=== PATIENT | female | born 1945 | race Hispanic/Latino ===

== ENCOUNTER 2019-01-09 12:04 | Outpatient (CLI) | payer MEDICARE, MEDICAID ==
[2019-01-09 13:35] LABS: #Eosinphils 0.1 thou/uL (0.0-0.7); #Lymphocytes 2.1 thou/uL (1.20-3.40); #Monocytes 0.5 thou/uL (0.11-0.59); #Neutrophils 3.9 thou/uL (1.40-6.50); %Basophils 0.6 % (0.0-1.0); %Lymphocytes 31.5 % (21.0-51.0); %Monocytes 7.6 % (0.0-10.0); %Neutrophils 59.3 % (42.0-75.0); Mean Corpuscular HGB CONC 33.6 g/dL (32.0-36.0); Mean Corpuscular Hemoglobin 31.5 pg (27.0-31.0); Mean Corpuscular Volume 93.7 fL (78.0-98.0); Mean Platelet Volume 8.7 fL (7.4-10.4); Platelet Count 216 thou/uL (130-400); RBC Distribution Width 11.7 % (11.5-14.5); Red Blood Cell (RBC) Count 4.12 mill/uL (4.20-5.40); White Blood Cell (WBC) Count 6.6 thou/uL (4.8-10.8)
[2019-01-09 14:00] LABS: ALT (SGPT) 15 U/L (8-55); AST (SGOT) 20 U/L (5-34); Albumin 4.2 g/dL (3.4-4.8); Alkaline Phosphatase 95 U/L (40-150); Anion Gap 10 mmol/L (10-20); BUN (Urea Nitrogen) 11 mg/dL (9.8-20.1); Bilirubin, Total 0.5 mg/dL (0.2-1.2); Calc. Creatinine Clearance 0 mL/min (70-130); Calcium 9.5 mg/dL (7.8-10.44); Carbon Dioxide 25 mmol/L (23-31); Chloride 109 mmol/L (98-107); Estimated GFR-MDRD 90; Globulin 2.7 g/dL (2.4-3.5); Glucose 103 mg/dL (83-110); Potassium 3.4 mmol/L (3.5-5.1); Protein, Total 6.9 g/dL (6.0-8.3); Sodium 141 mmol/L (136-145)
== END 2019-01-09 12:05 | disposition home or self-care (01) ==
LOC: LABBT 12:04
PROVIDERS: ATTEND Surgery
DX: Z01.818 Encounter for other preprocedural examination (principal); K43.9 Ventral hernia without obstruction or gangrene
CPT/HCPCS: 80053; 85025; 93005; 93010

== ENCOUNTER 2019-01-10 06:04 | Day surgery (SDC) | payer MEDICARE, MEDICAID ==
[2019-01-09 12:18] VITALS: BMI 29.5
[2019-01-10] MEDS ORDERED: Bupivacaine HCl 0.5%/Epinephrine 1:200,000/PF 30 ml Vial ONE (06:34)
[2019-01-10] MEDS ORDERED: ceFAZolin Sodium (SDC) 2 GM/100 ML BAG ONE (07:23)
[2019-01-10] MEDS ORDERED: Fentanyl 100 MCG/2 ML VIAL ONE ×2 (07:29→08:44)
--- NOTE | 2019-01-10 08:38 | OP ---
DATE OF PROCEDURE: 01/10/2019 PREOPERATIVE DIAGNOSIS: Epigastric ventral hernia. PROCEDURE PERFORMED: Open ventral hernia repair with mesh. INDICATIONS: This is a 73-year-old female with a painful bulge in her epigastrium, found to have a hernia. FINDINGS: A 1.5 cm defect, 6.4 cm mesh applied. DESCRIPTION OF PROCEDURE: After informed consent was obtained, the patient was taken to the operating room, given general mask anesthesia, placed in supine position. Abdomen was prepped and draped in usual fashion. Local anesthesia was infiltrated subcutaneously and deep. A midline incision was performed. Subcu divided sharply. The hernia sac was dissected out circumferentially and removed. The contents of the omentum, which was reduced. The defect was 1.5 cm. A 6.4 cm mesh patch was inserted intra-abdominally, pulled up. The leads were sutured to the abdominal wall with interrupted 0 Ethibond suture and then the mesh further secured to the fascia with interrupted 0 Ethibond suture. Hemostasis was achieved with electrocautery. Subcu reapproximated with interrupted 3-0 Vicryl. Skin closed with a running subcuticular 4-0 Rapide. Steri-Strips applied. Sterile bandage applied. The patient tolerated the procedure well, transferred to Recovery in good condition. Sponge and needle count verified correct x2. Job ID: [id number]
[2019-01-10] MEDS ORDERED: HYDROcodone/Acetaminophen 5/325 mg Tablet ONE (10:03)
[2019-01-10] MEDS ORDERED: Morphine 2 MG/ML SYRINGE ONE (10:10)
== END 2019-01-10 13:10 | disposition home or self-care (01) ==
LOC: SDC 06:04
PROVIDERS: ATTEND Surgery
PROC: 0WUF0JZ Supplement Abdominal Wall with Synthetic Substitute, Open Approach (ICD-10-PCS; principal; 2019-01-10)
DX: K43.9 Ventral hernia without obstruction or gangrene (principal)
CPT/HCPCS: J0670; J0690; J2270; J3010

== ENCOUNTER 2019-08-22 13:55 | Outpatient (CLI) | payer MEDICARE, MEDICAID ==
--- NOTE | 2019-08-22 14:34 | ULT ---
Exam: Right lower extremity sulci with Doppler HISTORY: Right calf pain. Recent right knee placement. COMPARISON: Technique: Grayscale, color flow, Doppler imaging and spectral wave form analysis of the right lower extremity venous system FINDINGS: There is compressibility, presence of flow and augmentation in the common femoral vein, femoral vein and popliteal vein. Flow in the posterior tibial vein. Flow the greater saphenous vein and profunda femoral vein IMPRESSION: No evidence of thrombus in the right lower extremity deep venous system
== END 2019-08-22 13:56 | disposition home or self-care (01) ==
LOC: ULT 13:55
PROVIDERS: ATTEND Orthopaedic Surgery
DX: M79.661 Pain in right lower leg (principal); Z96.651 Presence of right artificial knee joint

== ENCOUNTER 2019-10-11 19:36 | Emergency (ER) | payer MEDICARE, MEDICAID ==
[~2019-10-11 19:36] MED LIST: Iopamidol 370 76% 100 ML VIAL ONE
[2019-10-11 20:15] LABS: Bacteria/HPF None Seen HPF (None Seen); Bilirubin Negative (Negative); Blood, Urine 3+ (Negative); Clarity Clear (Clear); Glucose, Urine (Dipstick) Normal (Negative); Leukocyte Negative Leu/uL (Negative); Nitrite Negative (Negative); Protein, Urine (Dipstick) Negative (Neg-Trace); RBC/HPF Greater than 50 HPF (0-3); Squamous Epithelial 0-3 HPF (0-3); Urobilinogen Normal mg/dL (Less than 2); WBC/HPF 0-3 HPF (0-3)
[2019-10-11 20:17] LABS: #Basophils 0.1 thou/uL (0.0-0.2); #Eosinphils 0.1 thou/uL (0.0-0.7); #Lymphocytes 1.9 thou/uL (1.20-3.40); #Monocytes 0.6 thou/uL (0.11-0.59); #Neutrophils 6.2 thou/uL (1.40-6.50); %Basophils 0.6 % (0.0-1.0); %Eosinophils 1.5 % (0.0-10.0); %Lymphocytes 21.4 % (21.0-51.0); %Monocytes 6.7 % (0.0-10.0); %Neutrophils 69.8 % (42.0-75.0); Hemoglobin 14.6 g/dL (12.0-16.0); Mean Corpuscular HGB CONC 34.4 g/dL (32.0-36.0); Mean Corpuscular Hemoglobin 32.8 pg (27.0-31.0); Mean Corpuscular Volume 95.2 fL (78.0-98.0); Mean Platelet Volume 8.5 fL (7.4-10.4); Platelet Count 237 thou/uL (130-400); RBC Distribution Width 11.3 % (11.5-14.5); Red Blood Cell (RBC) Count 4.44 mill/uL (4.20-5.40); White Blood Cell (WBC) Count 8.9 thou/uL (4.8-10.8)
[2019-10-11 20:37] LABS: ALT (SGPT) 13 U/L (8-55); AST (SGOT) 18 U/L (5-34); Albumin 4.5 g/dL (3.4-4.8); Alkaline Phosphatase 118 U/L (40-110); Anion Gap 16 mmol/L (10-20); BUN (Urea Nitrogen) 14 mg/dL (9.8-20.1); Bilirubin, Total 0.4 mg/dL (0.2-1.2); Calc. Creatinine Clearance 0 mL/min (70-130); Calcium 9.7 mg/dL (7.8-10.44); Carbon Dioxide 21 mmol/L (23-31); Chloride 105 mmol/L (98-107); Estimated GFR-MDRD 76; Globulin 3.2 g/dL (2.4-3.5); Glucose 119 mg/dL (83-110); Lipase 31 U/L (8-78); Potassium 3.6 mmol/L (3.5-5.1); Protein, Total 7.7 g/dL (6.0-8.3); Sodium 138 mmol/L (136-145)
[2019-10-11] MEDS ORDERED: Ondansetron PF 4 MG/2 ML Vial ONE (21:49)
[2019-10-11] MEDS ORDERED: Morphine 4 MG/ML VIAL ONE (21:49)
--- NOTE | 2019-10-11 21:54 | CT ---
CT Abdomen Pelvis W Con HISTORY: Abdominal pain COMPARISON: None. FINDINGS: The lung bases are unremarkable. There is a 12 mm cyst in the right lobe of the liver. The patient is post cholecystectomy. The spleen, pancreas and adrenal glands are normal. There are bilateral renal cysts. There is a right-sided hydroureteronephrosis due to a 3 mm right UVJ calculus. No free air, free fluid or lymphadenopathy seen in the abdomen or pelvis. There are vascular calcific ations without evidence of aneurysmal dilatation of the abdominal aorta. There are degenerative changes in the spine. The small bowel loops are not abnormally dilated. There is colonic diverticulos is without diverticulitis. A normal-appearing appendix is present. The patient is status post hysterectomy. There is a small hiatal hernia. IMPRESSION: 1. 3 mm right UVJ calculus with ipsilateral hydroureteronephrosis 2. Bilateral renal cysts and a 12 mm right hepatic cyst 3. Colonic diverticulosis 4. Small hiatal hernia
--- NOTE | 2019-10-23 16:11 | EKG ---
Test Reason : ABD PAIN Blood Pressure : / mmHG Vent. Rate : 064 BPM Atrial Rate : 064 BPM P-R Int : 134 ms QRS Dur : 078 ms QT Int : 418 ms P-R-T Axes : 024 038 021 degrees QTc Int : 431 ms Normal sinus rhythm Nonspecific ST abnormality Abnormal ECG Confirmed by DYAN STERN ([id number]), industrial editor WALKER JOY ([id number]) on 10/23/2019 4:10:56 PM Referred By: Confirmed By:DYAN STERN
== END 2019-10-11 23:46 | disposition home or self-care (01) ==
LOC: ERS 19:36 → MERGE 19:36 → ERS 23:46
DX: N13.2 Hydronephrosis with renal and ureteral calculous obstruction (principal); I10 Essential (primary) hypertension; Z79.899 Other long term (current) drug therapy
CPT/HCPCS: 36415; 74177; 80053; 81003; 81015; 83605; 83690; 84484; 85025; 87086; 93005; 94760; 96374; 96375; J2270; J2405; Q9967

== ENCOUNTER 2019-11-11 14:58 | Outpatient (CLI) | payer MEDICARE, MEDICAID ==
--- NOTE | 2019-11-11 16:14 | MMO ---
Bilateral MAMMO Bilat Screen [facility]. CLINICAL HISTORY: Patient is 74 years old and is seen for diagnostic exam. The patient has no family history of breast cancer. The patient has no personal history of cancer. VIEWS: The views performed were: bilateral craniocaudal with tomosynthesis and bilateral mediolateral oblique with tomosynthesis. This study has been interpreted with the assistance of computer-aided detection. MAMMOGRAM FINDINGS: There are scattered fibroglandular densities. Benign calcifications are noted bilaterally. There are no suspicious masses, suspicious calcifications, or new areas of architectural distortion. IMPRESSION: THERE IS NO MAMMOGRAPHIC EVIDENCE OF MALIGNANCY. A ROUTINE FOLLOW-UP MAMMOGRAM IN 1 YEAR IS RECOMMENDED. THE RESULTS OF THIS EXAM WERE SENT TO THE PATIENT. ACR BI-RADS Category 2 - Benign finding MAMMOGRAPHY NOTE: 1. A negative mammogram report should not delay a biopsy if a dominant of clinically suspicious mass is present. 2. Approximately 10% to 15% of breast cancers are not detected by mammography. 3. Adenosis and dense breasts may obscure an underlying neoplasm. Reported by: MAREK RUSSELL MD Electonically Signed: [id number]
== END 2019-11-11 14:59 | disposition home or self-care (01) ==
LOC: BICMAMMO 14:58
PROVIDERS: ATTEND Family Medicine
DX: Z12.31 Encounter for screening mammogram for malignant neoplasm of breast (principal)
CPT/HCPCS: 77063; 77067

== ENCOUNTER 2020-08-30 14:56 | Outpatient (CLI) | payer MEDICARE, MEDICAID | END 2020-08-30 14:57 | disposition home or self-care (01) | LOC: BICMRI 14:56 | PROVIDERS: ATTEND Family Medicine | DX: R51.9 Headache, unspecified (principal); R20.2 Paresthesia of skin | CPT/HCPCS: 70551 ==

== ENCOUNTER 2021-06-28 14:47 | Outpatient (CLI) | payer MEDICAID, MEDICARE | END 2021-06-28 14:48 | disposition home or self-care (01) | LOC: BICULT 14:47 | PROVIDERS: ATTEND Family Medicine | DX: E04.1 Nontoxic single thyroid nodule (principal) | CPT/HCPCS: 76536 ==

== ENCOUNTER 2022-10-02 09:13 | Outpatient (CLI) | payer OTHER | END 2022-10-02 09:14 | disposition home or self-care (01) | LOC: ULT 09:13 | PROVIDERS: ATTEND Family Medicine | DX: E04.1 Nontoxic single thyroid nodule (principal) | CPT/HCPCS: 76536 ==

== ENCOUNTER 2023-04-10 09:18 | Outpatient (CLI) | payer OTHER, MEDICAID | END 2023-04-10 09:19 | disposition home or self-care (01) | LOC: BICMRI 09:18 | PROVIDERS: ATTEND Nurse Practitioner Family | DX: M47.22 Other spondylosis with radiculopathy, cervical region (principal); M25.511 Pain in right shoulder; M25.512 Pain in left shoulder; M19.012 Primary osteoarthritis, left shoulder; M19.011 Primary osteoarthritis, right shoulder; M85.812 Other specified disorders of bone density and structure, left shoulder | CPT/HCPCS: 72141 ==

== ENCOUNTER 2024-08-07 10:29 | Outpatient (CLI) | payer OTHER | END 2024-08-07 10:30 | disposition home or self-care (01) | LOC: BICULT 10:29 | PROVIDERS: ATTEND Family Medicine | DX: R31.9 Hematuria, unspecified (principal); N28.1 Cyst of kidney, acquired; K76.89 Other specified diseases of liver | CPT/HCPCS: 76770 ==